=== PATIENT | male | born 1955 | race Caucasian/White ===

== ENCOUNTER 2023-09-12 07:41 | Emergency (ER) | payer OTHER, MEDICAID, SELFPAY ==
[2023-09-12 07:46] VITALS: BP 131/77; PULSE 89; RESP 19; TEMP 36.5; O2SAT 97; BMI 26.4
[2023-09-12] MEDS: FLUORESCEIN 1 MG STRIP EYE-BOTH (09:10)
[2023-09-12] MEDS: PROPARACAINE 0.5% OPHTH SOL 1 DROPS EYE-BOTH (09:17)
--- NOTE | 2023-09-12 09:17 | PC.NURSE ---
Pt reports left eye not bothering him, but right eye is extremely blurry and painful, no visual discoloration of the eye but pt reports it weeps alot, which causes the left eye to weep also.
--- NOTE | 2023-09-12 09:55 | PC.NURSE ---
Pt ambulated out to nursing station and loudly states I've missed my bus, what are we waiting for?. I updated patient that I would talk to the provider and asked him to return to his room. Pt agrees. In room pt stomps his cane on the floor multiple times and states people expect me to have to walk everywhere on a bum leg and with no sleep! I dont understand it.Provider notified of pt requesting to leave.
--- NOTE | 2023-09-12 10:24 | ED.EYEPROB ---
HPI - Eye Problem General Chief complaint: Eye Problems Stated complaint: something in rt eye Time Seen by Provider: 09/12/23 08:12 Source: patient Mode of arrival: Family Vehicle History of Present Illness HPI Narrative: 68-year-old man with right eye pain and tearing for 3 days. This is vision is blurry. No associated traumatic injury. No nausea vomiting or headache. Does not wear contact lenses, wears glasses. Does not have an established product grader reports history of cataracts. Related Data Previous Rx's Medication Instructions Recorded ketorolac 0.4 % eye drops 1 drp EYE-RIGHT TID 3 days #5 mL 09/12/23 sulfacetamide sodium 10 % eye 0.5 inch EYE-RIGHT QID 5 days #3.5 09/12/23 ointment grams Allergies Allergy/AdvReac Type Severity Reaction Status Date / Time morphine AdvReac Shakiness Verified 09/12/23 07:54 Patient History Social History Smoking Status: Current every day smoker Smoking Status: Current every day smoker tobacco type: cigarettes Substance Use Type: marijuana Exam Narrative Exam Narrative: Alert, anxious and in no distress. Visual acuities are 20 70 on the right and 20 50 on the left. Conjunctiva is mildly injected on the right eye is otherwise intact without abnormality of the lid. Extraocular movements are intact, pupils are equal and reactive. On slit-lamp exam, anterior chambers are quiet and deep. There is no mattering. Fluorescein shows a small area of fluorescein uptake consistent with a corneal abrasion at about 1:00 a.m. on the iris, there does not appear to be a foreign body there is no fluorescein streaming. It was difficult to get an intra-ocular pressure, 27 on the right and 20 on the left. Initial Vital Signs Initial Vital Signs: Vital Signs Temperature 97.7 F 09/12/23 07:46 Pulse Rate 89 09/12/23 07:46 Respiratory Rate 19 09/12/23 07:46 Blood Pressure 131/77 09/12/23 07:46 Pulse Oximetry 97 09/12/23 07:46 Oxygen Delivery Method Room Air 09/12/23 07:46 Neck Other: Neck is supple Resp Effort & Inspection: normal respiratory effort and able to speak in complete sentences Neuro General: patient alert and patient oriented x3 Cognition: normal cognition Speech: speech normal Gait: normal gait Course Orders Ordered: Discontinued Medications Fluorescein Sodium (Fluorescein 1 Mg Strip) 1 mg EYE-BOTH NOW ONE Stop: 09/12/23 08:56 Last Admin: 09/12/23 09:10 Dose: 1 mg Documented By: KAYLA Proparacaine HCl (Proparacaine 0.5% Ophth Ria) 1 drops EYE-BOTH NOW ONE Stop: 09/12/23 08:56 Last Admin: 09/12/23 09:17 Dose: 1 drop Documented By: KAYLA Consultations Consultation #1: D/W radha, Dr Espinosa, pt has left, she is aware of him if he calls for followup Vital Signs Vital signs: Vital Signs - 8 hr 09/12/23 07:46 Temperature 97.7 F Pulse Rate 89 Respiratory Rate 19 Blood Pressure 131/77 Pulse Oximetry 97 Oxygen Delivery Method Room Air MDM - Eye Problem MDM Narrative Medical decision making narrative: 5-year-old male with right eye pain and watering. Differential diagnosis include conjunctivitis, foreign body, glaucoma, presentation does not suggest a WORSHIP LEADER event. He did have a corneal abrasion on fluorescein exam. It was my plan to discuss his case with Ophthalmology and arrange for follow up patient did not wish to wait for me to discuss the case with ophthalmology they are afraid with discharged against medical advice. I started him on antibiotic ointment for the corneal abrasion and ketorolac drops for pain. Patient was expressing advised to follow up with Ophthalmology as soon as possible. Also advice he is welcome to return to the emergency department at any point. Discharge Plan Departure Patient Disposition: Left Against Medical Advice Clinical Impression: Corneal abrasion Qualifiers: Encounter type: initial encounter Laterality: right Qualified Code(s): S05.01XA - Injury of conjunctiva and corneal abrasion without foreign body, right eye, initial encounter Instructions: DI for Eye Pain Activity Restrictions/Additional Instructions: We are discharging you at your request without completion of follow up arrangements. I recommend that you make an appointment to see an product grader as soon as possible. I will do my best to ensure that there are expecting your call. In the meantime, I recommend that you start the prescribed antibiotic eye ointment and I have prescribed drops which should help with the pain. You can also use acetaminophen (Tylenol) as needed for pain. Try not to scratch her eye and I recommend you stop using the Visine at this point. I am trying to get you seen by ophthalmology as soon as possible to ensure that you do not have a condition such as glaucoma which could permanently impaired vision. Follow up as soon as possible with your primary care provider. Call [facility] at [phone] and at them know that I recommended [facility] as soon as possible. Prescriptions: New sulfacetamide sodium 10 % ointment 0.5 inch EYE-RIGHT QID 5 Days Qty: 3.5 0RF ketorolac 0.4 % drops 1 drp EYE-RIGHT TID 3 Days Qty: 5 0RF Referrals: Bennett Treviño PA-C [Primary Care Provider] - Stand Alone Forms: Patient Portal/API, Against Medical Advice
== END 2023-09-12 10:10 | disposition left against medical advice (07) ==
PROVIDERS: Emergency Provider Emergency Medicine; Family Provider Nurse Practitioner; PCP Physician Assistant Medical
DX: S05.01XA Injury of conjunctiva and corneal abrasion without foreign body, right eye, initial encounter (principal)
CPT/HCPCS: 99282